=== PATIENT | male | born 1995 | race Caucasian/White ===

== ENCOUNTER 2017-06-13 18:12 | Emergency (ER) | payer OTHER ==
[~2017-06-13] VITALS: Ht 175.3 cm; Wt 72.6 kg
== END 2017-06-13 20:12 | disposition home or self-care (01) ==
LOC: ED 18:12
DX: H16.133 Photokeratitis, bilateral (principal); F17.200 Nicotine dependence, unspecified, uncomplicated; W89.8XXA Exposure to other man-made visible and ultraviolet light, initial encounter
CPT/HCPCS: 96374; 99282; J1885